=== PATIENT | female | born 1985 | race Caucasian/White ===

== ENCOUNTER 2022-05-03 10:44 | Emergency (ER) | payer OTHER ==
[~2022-05-03] VITALS: Ht 167 cm; Wt 117.9 kg
[2022-05-03] MEDS ORDERED: VENL-48 (11:01)
[2022-05-03] MEDS ORDERED: LISI30TA5 (11:01)
[2022-05-03] MEDS ORDERED: HYDR12.56 (11:01)
[2022-05-03] MEDS ORDERED: DOXY20TA5 (11:01)
[2022-05-03] MEDS ORDERED: IBUPROFEN 800 MG (MOTRIN) TAB PO STA (11:05)
--- NOTE | 2022-05-03 11:10 | ED Lower Extremity ---
General Chief Complaint: Lower Extremity Stated Complaint: LEFT ANKLE INJURY Nursing Triage Note: pt presents to ed via pov from home with complaints of l ankle/foot pain after falling and twisting it yesterday. Source: patient Exam Limitations: no limitations History of Present Illness Date Seen by Provider: May 03, 2022 Time Seen by Provider: 10:58 Initial Comments 36-year-old female presents to the ED with complaints of left ankle pain. She states she tripped and fell yesterday on the stairs, unsure exactly how she injured the ankle. States that the pain is on the lateral aspect of the left ankle, states her foot feels numb, she is able to feel my touch. States she is unable to put any weight on her ankle since the injury. She has not taken any pain medication this morning. Onset: yesterday Pain/Injury Location: left ankle Method of Injury: fell Modifying Factors: Improves With Immobilization Allergies and Home Medications Allergies Coded Allergies: No Known Drug Allergies (Unverified , 05/03/22) Patient Home Medication List Home Medication List Reviewed: Yes Doxycycline Hyclate (Doxycycline Hyclate) 20 Mg Tablet, (Reported) Entered as Reported by: SCOTT RECINOS on 05/03/221100 Last Action: New Order Hydrochlorothiazide (Hydrochlorothiazide) 12.5 Mg Tablet, (Reported) Entered as Reported by: SCOTT RECINOS on 05/03/221100 Last Action: New Order Lisinopril (Lisinopril) 30 Mg Tablet, (Reported) Entered as Reported by: SCOTT RECINOS on 05/03/221100 Last Action: New Order Venlafaxine HCl (Venlafaxine HCl ER) 37.5 Mg Cap.er.24h, (Reported) Entered as Reported by: SCOTT RECINOS on 05/03/221100 Last Action: New Order Review of Systems Constitutional: no symptoms reported Respiratory: no symptoms reported Cardiovascular: no symptoms reported Gastrointestinal: no symptoms reported Past Jwdevuh-Pclmzv-Nbjvpy Hx Patient Social History Tobacco Use?: No Substance use?: No Alcohol Use?: Yes Alcohol Frequency: Rarely Pt feels they are or have been: No Past Medical History Surgery/Hospitalization HX: pmh: htn, anxiety Physical Exam Vital Signs Vital Signs - First Documented 05/03/22 10:56 Temp 36.9 Pulse 92 Resp 18 B/P (MAP) 134/97 (109) Pulse Ox 98 Capillary Refill : Less Than 3 Seconds Height, Weight, BMI Height: '" Weight: lbs. oz. kg; 42.00 BMI Method: General Appearance: WD/WN, no apparent distress Neck: supple, normal inspection Cardiovascular: regular rate, rhythm, no edema, no gallop, no JVD, no murmur Respiratory: lungs clear, normal breath sounds, no respiratory distress, no accessory muscle use Ankles: left ankle limited range of motion, left ankle pain, left ankle soft tissue tenderness, left ankle swelling Feet: left foot non-tender, left foot normal inspection, left foot no evidence of injury, left foot other (Sensation intact, cap refill less than 3 seconds, foot warm to the touch, pedal pulses intact) Neurologic/Psychiatric: alert, normal mood/affect, oriented x 3 Skin: normal color, warm/dry Progress/Results/Core Measures Results/Orders My Orders Orders - SUDHA WINSTON APRN Ibuprofen Tablet (Motrin Tablet) (05/03/22 11:05) Ankle, Left, 3 Views (05/03/22 11:05) Air Strup Ankle Brace (05/03/22 11:56) Crutches (05/03/22 11:56) Vital Signs/I&O 05/03/22 05/03/22 10:56 12:15 Temp 36.9 36.9 Pulse 92 92 Resp 18 18 B/P (MAP) 134/97 (109) 134/97 Pulse Ox 98 98 Blood Pressure Mean: 109 Progress Progress Note #1: Time: 11:09 Progress Note Patient seen and evaluated, resting in wheelchair, no acute distress. Concern for ankle fracture versus sprain, x-ray ordered of the left ankle. Ibuprofen ordered for pain. Progress Note #2: Time: 12:00 Progress Note X-ray reviewed, no acute bony abnormality. Crutches, Jude wrap, and ankle stirrup ordered. Results discussed with patient. Discharge instructions and return precautions provided. Diagnostic Imaging Diagonstic Imaging: Xray Plain Films/CT/US/NM/MRI: ankle Comments [facility]. [place], [place] NAME: JOEL DELGADO [facility] REC#: [id number] PT STATUS: REG ER : 1985 PHYSICIAN: SUDHA WINSTON APRN ADMIT DATE: 05/03/22/ER Signed Date of Exam:05/03/22 ANKLE, LEFT, 3 VIEWS EXAMINATION: Left ankle radiograph EXAM DATE: 05/03/2022 11:42 AM COMPARISON: None available. HISTORY: ankle pain TECHNIQUE: 3 views FINDINGS: There is no acute fracture, dislocation, or destructive osseous process. The joint spaces are normal. The soft tissues are normal. IMPRESSION: 1. No acute osseous abnormality. Dictated by: Dictated on workstation # [id number] Dict: 05/03/22 1145 Trans: 05/03/22 1204 [facility] [id number] Interpreted by: ROSALINO FELICIANO DO Electronically signed by: ROSALINO FELICIANO DO 05/03/22 1204 Departure Impression Primary Impression: Sprain and strain of ankle Disposition: 01 HOME, SELF-CARE Condition: Stable Departure-Patient Inst. Referrals: NO,LOCAL PHYSICIAN (PCP) Primary Care Physician Patient Instructions: Ankle Sprain (DC) Add. Discharge Instructions: Use ankle brace and Jude wrap as needed for pain and comfort. Use the crutches to help stay off your foot. Use rest, ice, compression, and elevation. You may take ibuprofen and Tylenol as needed for pain. Ibuprofen will help with the inflammation. Take ibuprofen with food. Return for uncontrollable pain, numbness, tingling, change in the color of your toes, or any other new, concerning, worsening symptoms. All discharge instructions reviewed with patient and/or family. Voiced understanding. SUDHA WINSTON APRN May 03, 2022 11:09
--- NOTE | 2022-05-03 11:50 | Diagnostic Imaging Report ---
EXAMINATION: Left ankle radiograph EXAM DATE: 05/03/2022 11:42 AM COMPARISON: None available. HISTORY: ankle pain TECHNIQUE: 3 views FINDINGS: There is no acute fracture, dislocation, or destructive osseous process. The joint spaces are normal. The soft tissues are normal. IMPRESSION: 1. No acute osseous abnormality. Dictated by: Dictated on workstation # [id number]
[2022-05-03 12:15] VITALS: BP 134/97
== END 2022-05-03 12:14 | disposition home or self-care (01) ==
LOC: ER 10:47
DX: S93.402A Sprain of unspecified ligament of left ankle, initial encounter (principal); S96.912A Strain of unspecified muscle and tendon at ankle and foot level, left foot, initial encounter; X50.1XXA Overexertion from prolonged static or awkward postures, initial encounter; W01.0XXA Fall on same level from slipping, tripping and stumbling without subsequent striking against object, initial encounter; Y92.009 Unspecified place in unspecified non-institutional (private) residence as the place of occurrence of the external cause
CPT/HCPCS: 73610